=== PATIENT | male | born 1985 | race Caucasian/White ===

== ENCOUNTER 2025-05-16 14:24 | Inpatient (IN) | payer OTHER ==
[~2025-05-16] VITALS: Ht 182.9 cm; Wt 113.0 kg
--- NOTE | 2025-05-16 14:28 | ELECTROCARDIOGRAPH REPORT ---
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
[2025-05-16 14:41] LABS: MEAN PLATELET VOLUME 8.3 FL (7.4-10.4); RED CELL DISTRIBUTION WIDTH 14.8 % (11.5-14.5)
[2025-05-16 15:01] VITALS: TEMP 97.4
[2025-05-16 15:02] LABS: CREATININE 1.12 MG/DL (0.60-1.10); PRO BRAIN NATRIURETIC PEPTIDE 1166 PG/ML (0-125); TOTAL CARBON DIOXIDE 29.3 MMOL/L (24-32); eGFR 72 ML/MIN
--- NOTE | 2025-05-16 15:05 | RADIOLOGY REPORT ---
CHEST RADIOGRAPH Indication: CP Technique: Single frontal view of the chest was obtained Comparison: None FINDINGS: Lines and Tubes: None Lungs: No focal consolidation. Pleura: No effusion. No pneumothorax. Cardiomediastinal contours: Cardiomegaly Bones: No acute osseous abnormality. IMPRESSION: No acute cardiopulmonary disease. Mild cardiomegaly.
--- NOTE | 2025-05-16 15:34 | Physician Documentation ---
History of Present Illness ~ Chief Complaint: Chest Pain Stated Complaint: STEMI Time Seen by MD: 14:26 HPI 40-year-old male history of alcohol use disorder last drink 48 hours ago, hypertension presenting for shortness of breath and chest pain. He has had intermittent chest pain over the last 24 hours. Also feeling increasing shortness of breath. He presented to [facility] where he was found to be hypertensive. He is given labetalol. His troponin was slightly elevated. He reports chest pain during transport. Outside hospital received aspirin 324 mg, Lovenox 110 mg labetalol 20 mg troponin outside hospital 0.11 NG/mL BNP 168 chest x-ray negative D-dimer Medication Reconciliation Allergies: Coded Allergies: No Known Allergies (Unverified , 05/16/25) Review of Systems All Other Systems at this time: Reviewed and Negative Physical Exam Vital Signs: Temperature: 97.4, Source: Temporal, Heart Rate: 82, Respiratory Rate: 12, BP: 151/98, Pulse Oximetry: 96, Weight: 113.000 Physical Exam Well-appearing no acute distress Neck no JVD Chest clear to auscultation bilaterally Cardiac no murmur Abdomen is soft nontender Lower extremity 1+ edema Skin pink warm dry Neuro awake alert oriented Progress Progress Note Consulted hospitalist who agrees with management plan and graciously accept for admission Results/Orders Reviewed/noted all lab results: Yes Results/Orders Orders - OSITO HAYWARD MD Chest,Single View (05/16/25 14:25) Monitor (05/16/25 14:25) Saline Lock (05/16/25 14:25) Oxygen (05/16/25 14:25) Hs Troponin I W Calculations (05/16/25 16:25) Hs Troponin I W Calculations (05/16/25 17:25) Pt Inr (05/16/25 15:37) PTT (05/16/25 15:37) Heparin 25,000 Unit/250ml Bag (Heparin 2 (05/16/25 15:40) Heparin 10,000 Unit/Ml 1ml (Heparin 10,0 (05/16/25 15:40) Drug Screen, Urine (05/16/25 15:37) Page Hospitalist (05/16/25 16:00) Fill Out Med Reconciliation (05/16/25 16:00) Completed Orders - OSITO HAYWARD MD Chest,Single View (05/16/25 14:25) Cbc/Diff (05/16/25 14:25) BMP (05/16/25 14:25) PBNP (05/16/25 14:25) Electrocardiogram (05/16/25 14:25) Hs Troponin I W Calculations (05/16/25 14:25) Furosemide Inj (Lasix Inj) (05/16/25 15:35) Heparin 10,000 Unit/Ml 1ml (Heparin 10,0 (05/16/25 15:40) Ethanol (05/16/25 14:32) Message To Nursing (05/16/25 16:20) Vital Signs 05/16/25 05/16/25 15:01 15:09 Temp 97.4 Pulse 81 82 Resp 18 12 B/P (MAP) 153/110 151/98 (115) Pulse Ox 96 96 Laboratory Tests Test 05/16/25 14:32 05/16/25 15:12 White Blood Count 6.6 Red Blood Count 4.42 L Hemoglobin 14.6 Hematocrit 43.4 Mean Corpuscular Volume 98.1 H Mean Corpuscular Hemoglobin 33.0 H Mean Corpuscular Hemoglobin Concent 33.6 Red Cell Distribution Width 14.8 H Platelet Count 172 Mean Platelet Volume 8.3 Neutrophils (%) (Auto) 67.2 Lymphocytes (%) (Auto) 21.8 Monocytes (%) (Auto) 6.2 Eosinophils (%) (Auto) 4.1 Basophils (%) (Auto) 0.7 Neutrophils # (Auto) 4.4 Lymphocytes # (Auto) 1.4 Monocytes # (Auto) 0.4 Eosinophils # (Auto) 0.3 Basophils # (Auto) 0.0 CBC Comment Coagulation Comments Sodium Level 138 Potassium Level 3.8 Chloride Level 103 Carbon Dioxide Level 29.3 Anion Gap 6 L Blood Urea Nitrogen 11 Creatinine 1.12 H Estimated GFR/1.73 m2 72 BUN/Creatinine Ratio 9.8 L Glucose Level 105 H Calcium Level 8.5 Troponin I High Sensitivity 136 *H Pro-B-Type Natriuretic Peptide 1166 H Albumin 3.6 Chemistry Comments Ethyl Alcohol Level < 10 Drug Screen Comment EKG/XRAY/CT/US/VASC/MRI EKG : Additional Comment EKG independently interpreted by myself time 2:26 p.m. indication chest pain normal sinus rhythm rate 75 normal axis normal intervals lateral T-wave inversions no ST-elevation Heart Score: Heart Score Response (Comments) Value History Highly Suspicious 2 EKG Repolarization Disturb 1 Age <45 0 Risk Factors 1 or 2 risk factors 1 Troponin 1-2 x's Normal limit 1 Total 5 Medical Decision Making Additional information obtaine: N/A Findings na Heart Score: 5 Differential Dx:Considerations: Include: angina, aortic dissection, chest wall pain, CHF Departure Disposition: ADMITTED INPATIENT Admitted to Inpatient Unit: to hospitalist Impression: Primary Impression: NSTEMI (non-ST elevated myocardial infarction) Referrals: NO PRIMARY CARE PROVIDER (PCP) Critical Care Note Total Time (mins): 30 Critical Care Note The very real possibility of a deterioration of this patient's condition required the highest level of my preparedness for sudden, emergent intervention. I provided critical care services, which included medication orders, frequent reevaluations of the patient's condition and response to treatment, ordering and reviewing test results, and discussing the case with various consultants. Excludes time spent performing separately billable procedures. The critical care time associated with the care of the patient was 30 minutes in the management of NSTEMI Signature Scribe Signature: na Attestation: OSITO Victor MD May 16, 2025 15:34
[2025-05-16] MEDS ORDERED: heparin 10,000 units/1 ML INJ IV PRN (15:40)
[2025-05-16 16:19] LABS: ETHANOL < 10 MG/DL (<10)
[2025-05-16] MEDS: furosemide 10 MG/1 ML 10ml inj IV ONE (16:28)
[2025-05-16] MEDS: MESSAGE TO NURSING IV ONE (16:31)
[2025-05-16] MEDS: heparin 10,000 units/1 ML INJ IV ONE (16:33)
[2025-05-16] MEDS: heparin 25,000 UNIT/250ml bag 250 ML IV PRN (16:35)
[2025-05-16 16:48] LABS: APTT 35 SECONDS (22-32); INR 1.1 INR
[2025-05-16 16:50] LABS: URINE AMPHETAMINE SCREEN NEGATIVE (Neg); URINE BARBITUATE SCREEN NEGATIVE (Neg); URINE BENZODIAZEPINES SCREEN POSITIVE (Neg); URINE CANNABINOID SCREEN NEGATIVE (Neg); URINE COCAINE SCREEN NEGATIVE (Neg); URINE METHADONE SCREEN NEGATIVE (Neg); URINE OPIATE SCREEN NEGATIVE (Neg); URINE PHENCYCLIDINE SCREEN NEGATIVE (Neg)
[2025-05-16] MEDS ORDERED: potassium Cl 40MEQ/1/2NS 520ml 520 ML IV PRN (17:20)
[2025-05-16] MEDS ORDERED: mag hydrox/Alum hydrox/simeth 30ml oral suspension PO PRN (17:20)
[2025-05-16] MEDS ORDERED: HYDROcodone/acetaminophen 5mg/325mg tablet PO PRN (17:20)
[2025-05-16] MEDS ORDERED: potassium Cl 20 mEq SR tablet PO PRN ×2 (17:20)
[2025-05-16] MEDS ORDERED: magnesium Cl slow-release 64mg tablet PO PRN (17:20)
[2025-05-16] MEDS ORDERED: magnesium sulf-water 2g/50mL 50 ML IV PRN (17:20)
[2025-05-16] MEDS ORDERED: magnesium hydroxide 30ml (MOM) UD suspension PO PRN (17:20)
[2025-05-16] MEDS ORDERED: ondansetron/PF 4mg/2ml inj IV PRN (17:20)
[2025-05-16] MEDS ORDERED: magnesium sulf-water 4G/100mL 100 ML IV PRN (17:20)
[2025-05-16] MEDS ORDERED: morphine 4 MG/ML inj SYRINge IV PRN (17:40)
[2025-05-16 17:53] VITALS: BP 144/96; PULSE 83; RESP 18; O2SAT 98
[2025-05-16 18:01] LABS: CHOL/HDL RATIO 5.5 (0.00-4.99); LDL CHOLESTEROL 138 MG/DL (50-100)
--- NOTE | 2025-05-16 18:33 | HISTORY AND PHYSICAL-Residence ---
History & Physical Providers to CC Resident Creating Document: DARREL QUINTANA RES ~ History of Present Illness Reason for Admit\Complaint: NSTEMI versus type 2 PA History of Present Illness This is a 40-year-old male with recent diagnosis of heart failure with reduced ejection fraction in April, noncompliant with his medication came to the ER complaining of fluid retention and chest pain since today morning. According to the patient, he was diagnosed with heart failure with reduced ejection fraction in [facility] in April 2025 after he went in for complaints of shortness of breath at rest. He was started on GDM T for the same. He was not taking Lasix and drinking lots of fluids. When he weighed himself today he found out that he had gained 3 lb and was also having chest pain in the left side of the chest at rest, nonradiating, burning type, 5/10 which was relieved after 1 hour without any medication. Currently he does not have any chest pain. Not associated with palpitation, dizziness, headaches. He also complains of mild swelling in his bilateral feet. He also has history of alcohol use disorder. Drinks a 5th of vodka every day. His last drink was 2 days ago. He started Librium at home. He has tried to quit alcohol many times, but has not sustained without it. He has Librium at home and then takes it whenever he feels shaky. No history of alcoholic hallucinations, alcohol-induced seizures, delirium tremens in the past. Does not give history of any other drug use. Allergies: Coded Allergies: No Known Allergies (Unverified , 05/16/25) Past Medical History Past Medical History Heart failure with reduced ejection fraction Past Surgical History Surgical History Comment Right Hip fracture stabilized with pins Past Social History Smoking: Non-Smoker Alcohol Use: Abuse Drug Use: None Lives with: Alone Lives In: Home Occupation: unemployed ROS All Other Systems: Reviewed and Negative Constitutional: Reports: diaphoresis Eyes: Reports: no symptoms reported ENT: Reports: no symptoms reported Respiratory: Reports: no symptoms reported Cardiovascular: Reports: chest pain Gastrointestinal: Reports: no symptoms reported Genitourinary: Reports: no symptoms reported Male Genitalia: Reports: no symptoms reported Neurological: Reports: no symptoms reported Musculoskeletal: Reports: no symptoms reported Integumentary: Reports: no symptoms reported Allergic/Immunologic: Reports: no symptoms reported Hematologic/Lymphatic: Reports: no symptoms reported Endocrine: Reports: no symptoms reported Psychiatric: Reports: no symptoms reported Exam Vitals: Vital Signs Date Time Temp Pulse Resp B/P (MAP) Pulse Ox O2 Delivery O2 Flow Rate FiO2 05/16/25 17:53 83 18 144/96 (112) 98 05/16/25 15:01 97.4 General: General: Well alert, well oriented, not confused, not agitated, not in acute distress, well cooperated during the physical. HEENT: Conjunctive are pink, sclerae clear, no icterus, pupil is equal in both sides, reactive to light, no ear discharge, no pharyngeal erythema or an edema. Neck: Supple, no JVD, no lymphadenopathy and thyromegaly. Chest: Equal air entry on both lungs, no added sounds, no wheeze. Cardiovascular: S1-S2 regular sinus rhythm and, regular rate, no gallops, no rubs, no murmurs Abdomen: No visible peristalsis, Bowel sounds present on auscultation, soft, nontender, no guarding, no rigidity Extremities: No obvious deformities, 1+ pitting edema bilaterally, capillary refill intact, peripheral pulsations are intact on both sides Central Nervous System: No focal neurological deficits, no motor or sensory weakness in all 4 extremities, could move all 4 extremities, 2+ deep tendon reflexes, negative Babinski. Musculoskeletal: No joint swelling, deformities, inflammations, and no scoliosis and back tenderness Skin: Warm and dry. Diagnostic Data Last Recorded Lab Results: 05/16/25 1432 05/16/25 1432 Diagnostic Data: Laboratory Tests Test 05/16/25 14:32 Prothrombin Time 11.0 SECONDS (9.0-12.0) INR International Normalized Ratio 1.1 INR Activated Partial Thromboplast Time 35 SECONDS (22-32) H Coagulation Comments Counseling Services Smoking & Tobacco Cessation: N/A Advance Care Planning Advanced Care plannin - 30 Minutes (Full code) Additional Plan Plan: NSTEMI versus type 2 PA Vitals stable, currently no chest pain EKG shows nonspecific T-wave inversions. No ST segment changes. Serial tropes elevated NT proBNP 1100, chest x-ray normal The patient is started on heparin drip in the ER. Acute exacerbation of CHF with reduced ejection fraction Hyperlipidemia Continue home medication lisinopril 20, spironolactone 10, Jardiance 25, gabapentin 100, metoprolol 100, rosuvastatin 20 With the patient on Lasix 40 mg IV t.i.d., strict input and output monitoring, daily weights plan Alcohol use disorder Start the patient on mild alcohol withdrawal treatment WE INITIALLY PLANNED TO TREAT THE PATIENT FOR ABOVE CONDITION WITH THE ABOVE- MENTIONED TREATMENT PLAN. HOWEVER THE PATIENT WANTS TO LEAVE AGAINST MEDICAL ADVICE. HE WANTS TO BE TREATED ON AN OUTPATIENT BASIS. HIS PLAN IS TO BE COMPLIANT WITH HIS MEDICATION ONCE HE LEAVES THE HOSPITAL. THE SEVERITY OF HIS CONDITION HAS BEEN EXPLAINED TO HIM. THE RISKS AND BENEFITS OF LEAVING THE HOSPITAL HAS BEEN EXPLAINED TO HIM. THE PATIENT SEEMED TO UNDERSTAND EVERYTHING THAT WAS EXPLAINED TO HIM. AFTER THE ABOVE DISCUSSION, HE STILL DECIDED TO LEAVE AGAINST MEDICAL ADVICE. Darrel Quintana Internal Medicine, PGY 1 [facility] Date of Service: May 16, 2025 Billing Provider: BLANCA BAILEY MD Common Visit Codes: [id number] INP/OBS CARE (HIGH) DARREL QUINTANA, RES May 16, 2025 18:33 BLANCA BAILEY MD May 17, 2025 13:15
[2025-05-16] MEDS ORDERED: K and/or MAG REPLACEMENT MC SCH (20:00)
[2025-05-16] MEDS ORDERED: docusate sod 100mg capsule PO SCH (20:00)
== END 2025-05-16 18:30 | disposition left against medical advice (07) | DRG 281 ==
LOC: ER 14:24 → ED HOLD 17:23
PROVIDERS: ADMIT Internal Medicine; ATTEND Internal Medicine
DX: I50.23 Acute on chronic systolic (congestive) heart failure (principal); F10.939 Alcohol use, unspecified with withdrawal, unspecified; I21.A1 Myocardial infarction type 2; E78.49 Other hyperlipidemia; Z53.21 Procedure and treatment not carried out due to patient leaving prior to being seen by health care provider
CPT/HCPCS: 36415; 71045; 80048; 80061; 80305; 80320; 83036; 83880; 84484; 85025; 85610; 85730; 93005; 96365; 96375; 99291; G0378; J1644; J1938